=== PATIENT | male | born 2000 | race Caucasian/White ===

== ENCOUNTER 2020-12-15 16:28 | Outpatient (CLI) | payer OTHER | END 2020-12-15 16:29 | disposition home or self-care (01) | LOC: COV 16:28 | PROVIDERS: ATTEND Family Medicine | DX: U07.1 COVID-19 (principal) ==

== ENCOUNTER 2024-01-21 16:59 | Emergency (ER) | payer OTHER ==
[2024-01-21 17:07] VITALS: BP 132/80; O2SAT 100
--- NOTE | 2024-01-21 17:58 | ED Physician Documentation ---
PD HPI HEAD INJURY - Stated complaint Stated Complaint: HEAD INJ - Chief complaint Chief Complaint: Trauma Hd/Nk - History obtained from History obtained from: Patient - History of Present Illness Mechanism of head injury: Blow Where head injury occurred: Work Timing - onset: Today (this morning) Location of injury: Top (box fell from shelf above and struck top of head.) Quality of pain: Pain, Aching Associated symptoms: Nausea / vomiting (mild nausea after the injury and has continued some. no vomiting.). No: LOC, AMS Similar symptoms before: Has not had sx before PD PAST MEDICAL HISTORY - Past Medical History Past Medical History: No Cardiovascular: None Respiratory: None Neuro: None Endocrine/Autoimmune: None GI: None : None HEENT: None Psych: None Musculoskeletal: None Derm: None - Past Surgical History Past Surgical History: No - Allergies Allergies/Adverse Reactions: Allergies Allergy/AdvReac Type Severity Reaction Status Date / Time No Known Drug Allergies Allergy Verified 01/21/24 17:02 - Social History Does the pt smoke?: No Smoking Status: Never smoker Does the pt drink ETOH?: No Does the pt have substance abuse?: No - Immunizations Immunizations are current?: Yes - POLST Patient has POLST: No PD ED PE NORMAL - Vitals Vital signs reviewed: Yes - General General: Alert and oriented X 3, No acute distress, Well developed/nourished - HEENT HEENT: PERRL, EOMI, Other (some tenderness top of head. 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 ) Results - Vitals Vitals: Oxygen O2 Source Room air PD Medical Decision Making - ED course Complexity details: considered differential (struck top of head by falling object at work. Dazed and brief nausea. Mild symptoms now. Shared decision to forego imaging with low prob of ICH/fx by head injury guidelines, different from having symptoms from the impact that can be several days.), d/w patient Departure - Departure Disposition: 01 Home, Self Care Clinical Impression: Head contusion, Headache, Mild concussion Condition: Stable Record reviewed to determine appropriate education?: Yes Instructions: ED Concussion Comments: Your symptoms sound consistent with a mild concussive effect from being hit on the head. Headache and some nausea are common. Typically this will last for a day or 2 and improve. The degree of symptoms do not suggest sound suggestive of more serious process such as fractures or bleeding and head injury guidelines would suggest holding off on imaging at this point and seeing if symptoms just resolve in the next day or 2. Tylenol and/or ibuprofen as needed for pains. We did send you with a couple of tablets for nausea you can use every 6 hours. Return to the ER if notable increase in symptoms. Otherwise see how you feel over the next day or 2. Rest off work tomorrow. Recheck or return if not resolved over the next 2 to 3 days. Forms: PCP List, Activity restrictions Discharge Date/Time: 01/21/24 19:11
[2024-01-21] MEDS: ACETAMINOPHEN 500 MG TABLET PO STA (18:51)
[2024-01-21] MEDS: IBUPROFEN 600 MG TABLET PO STA (18:51)
[2024-01-21] MEDS: ONDANSETRON ODT 4 MG TABLET TL STA (18:51)
[2024-01-21] MEDS: ONDANSETRON ODT 4 MG Prepack 2 TL PRN (18:54)
== END 2024-01-21 19:11 | disposition home or self-care (01) ==
LOC: ED 16:59
DX: S06.0X0A Concussion without loss of consciousness, initial encounter (principal); S00.03XA Contusion of scalp, initial encounter; W20.8XXA Other cause of strike by thrown, projected or falling object, initial encounter; Y92.89 Other specified places as the place of occurrence of the external cause; Y99.0 Civilian activity done for income or pay
CPT/HCPCS: 99283; A9270; Q0162; 1040M